=== PATIENT | female | born 1960 ===

== ENCOUNTER 2018-01-16 10:29 | Outpatient (CLI) | payer OTHER ==
--- NOTE | 2018-01-16 11:20 | Ultrasound Report ---
RIGHT BREAST ULTRASOUND: 01/16/18 10:29:00 CLINICAL: Right breast mass identified on a screening mammogram. COMPARISON: 07/31/17 mammogram from [place], [place] FINDINGS: Ultrasound of the right breast demonstrated an oval solid heterogeneous hypoechoic mass at 2 o'clock 7 cm from the nipple. It measures approximately 9 x 8 x 5 mm and correlates with the mammographic mass.No posterior enhancement or shadowing. IMPRESSION: A solid 9 mm right breast mass at 2 o'clock. Recommend ultrasound-guided needle core biopsy to exclude malignancy. I discussed the findings and the recommendation for needle core biopsy with the patient at the time of the examination. BI-RADS 4--Suspicious
== END 2018-01-16 10:30 | disposition home or self-care (01) ==
LOC: SPVWC 10:29
PROVIDERS: ATTEND Obstetrics & Gynecology
DX: N63.10 Unspecified lump in the right breast, unspecified quadrant (principal)

== ENCOUNTER 2018-01-29 12:52 | Outpatient (CLI) | payer OTHER ==
--- NOTE | 2018-01-29 14:29 | Mammography Report ---
RIGHT DIGITAL DIAGNOSTIC MAMMOGRAM: 01/29/18 12:52:00 CLINICAL: For clip placement immediately status post ultrasound biopsy. COMPARISON:None. FINDINGS: A biopsy clip is now identified in the upper inner quadrant and is concordant. IMPRESSION: Concordant clip placement status post ultrasound biopsy. BI-RADS CATEGORY: 4--Suspicious Pathology pending.
--- NOTE | 2018-01-29 15:09 | Ultrasound Report ---
ULTRASOUND GUIDED NEEDLE CORE BIOPSY RIGHT BREAST WITH CLIP PLACEMENT: 01/29/18 CLINICAL: Right breast mass at 2 o'clock 7 cm from the nipple. COMPARISON :01/16/18 FINDINGS: The procedure was explained to the patient and informed consent was obtained. Ultrasound demonstrated the previously described oval mass at 2 o'clock. I marked the breast with a felt tip marker and a time out was called. The skin was prepped with Betadine and anesthetized with 1% lidocaine. Needle core biopsy was performed through a tiny dermatotomy using ultrasound guidance, 2% lidocaine with epinephrine for deep anesthesia and a 14-gauge Achieve biopsy device. 4 cores were obtained and placed in formalin. A clip was deployed within the mass. The patient tolerated the procedure well and there were no apparent complications. Hemostasis was achieved with minimal pressure and a sterile dressing was applied. A two view mammogram demonstrated satisfactory placement of the clip. She left the department in good condition and was given instructions for wound care and followup. IMPRESSION: Uncomplicated ultrasound guided needle core biopsy with clip placement right breast.
== END 2018-01-29 12:53 | disposition home or self-care (01) ==
LOC: SPVWC 12:52
PROVIDERS: ATTEND Obstetrics & Gynecology
DX: D24.1 Benign neoplasm of right breast (principal); N63.11 Unspecified lump in the right breast, upper outer quadrant
CPT/HCPCS: 88305